=== PATIENT | female | born 1935 | race Caucasian/White ===

== ENCOUNTER 2016-09-30 19:23 | Inpatient (IN) | payer MEDICARE, MEDICAID ==
[~2016-09-30] VITALS: Ht 165.1 cm; Wt 37.0 kg
[2016-09-30 20:48] LABS: BASOPHILS 0.2 % (0-2); EOSINOPHILS 0.3 % (0-7); HEMATOCRIT 43.4 % (36.0-48.0); HEMOGLOBIN 14.2 g/dL (12-16); IMMATURE GRANULOCYTES 0.3 % (0-5); LYMPHOCYTES 25.6 % (15-50); MCH 29.7 pg (26.0-34.0); MCHC 32.7 g/dL (31.0-37.0); MCV 90.8 fL (80.0-100.0); MEAN PLATELET VOLUME 10.8 fL (7.4-10.4); MONOCYTES 7.7 % (2-11); NEUTROPHILS 65.9 % (40-80); PLATELET COUNT 203 10x3/uL (130-400); RBC 4.78 10x6/uL (4.00-5.40); RDW 14.6 % (11.5-14.5); WBC 6.1 10x3/uL (4.8-10.8)
[2016-09-30 21:25] LABS: ANION GAP 16.1 mmol/L (8-16); CALCIUM 9.5 mg/dL (8.5-10.1); CARBON DIOXIDE 24.9 mmol/L (21.0-32.0); CREATININE - SERUM 0.9 mg/dL (0.6-1.3)
[2016-09-30 21:30] LABS: APTT 26.7 SECONDS (22.8-39.4); INR 0.96 (0.85-1.17); PROTIME 12.7 SECONDS (11.6-15.0)
[2016-09-30 21:32] LABS: D-DIMER-QUANTITATIVE 3.34 ug/mLFEU (0.20-0.54)
[2016-09-30 21:32] LABS: TROPONIN-I 0.016 ng/mL (0.000-0.060)
[2016-10-01] VITALS (7 sets, daily range): BP systolic 90–144; BP diastolic 40–123; Ht 165.1 cm; Wt 37.0 kg
--- NOTE | 2016-10-01 01:24 | NUR ---
ARRIVED TO FLOOR VIA STRETCHER, ASSISSTED TO BED. ORIENTED TO UNIT AND PLACED ON TELEMETRY. CALL LIGHT IN REACH. FAMILY AT BEDSIDE. NO NEEDS NOTED AT THIS TIME. WILL CONTINUE TO MONITOR. SEE NURSE ASSESSMENT.
[2016-10-01] MEDS ORDERED: MEGACE40 MG PO (01:51)
[2016-10-01] MEDS ORDERED: LIPITOR10 MG PO (01:52)
[2016-10-01] MEDS ORDERED: OMEGA-3100 MG PO (01:53)
[2016-10-01] MEDS ORDERED: CHRONULAC30 ML PO (01:53)
--- NOTE | 2016-10-01 07:36 | NUR ---
AM ROUNDING- RECEIVED REPORT FROM VP INTEGRATION NURSE DARIUS. PT IS CURRENTLY SITTING UP IN BED WITH EYES OPEN MUMBLING SOUNDS. SISTER AT BEDSIDE. ON MONITOR SHOWING CONTROLLED A-FIB , HR 79. ON SIMPLE MASK AT 2L. IV SEEN TO RIGHT FOREARM WITH CARDIZEM DRIP RUNNING AT 10CC CONTINUOUS. SIDE RAILS ARE UP X2 AND BED ALARM IS ON. WILL CONTINUE TO MONITOR AND CONTINUE WITH PLAN OF CARE.
[2016-10-01 16:21] LABS: BASOPHILS 0.3 % (0-2); EOSINOPHILS 0.8 % (0-7); HEMATOCRIT 38.5 % (36.0-48.0); HEMOGLOBIN 12.4 g/dL (12-16); IMMATURE GRANULOCYTES 0.5 % (0-5); LYMPHOCYTES 25.5 % (15-50); MCH 29.9 pg (26.0-34.0); MCHC 32.2 g/dL (31.0-37.0); MEAN PLATELET VOLUME 9.8 fL (7.4-10.4); MONOCYTES 9.4 % (2-11); NEUTROPHILS 63.5 % (40-80); PLATELET COUNT 204 10x3/uL (130-400); RBC 4.15 10x6/uL (4.00-5.40); RDW 14.6 % (11.5-14.5)
[2016-10-01 16:24] LABS: MCV 92.8 fL (80.0-100.0); WBC 7.9 10x3/uL (4.8-10.8)
[2016-10-01 16:31] LABS: CALC OSMOLALITY 279 mosm/kg (275-300); CALCIUM 9.1 mg/dL (8.5-10.1); CARBON DIOXIDE 21.6 mmol/L (21.0-32.0); CHLORIDE - SERUM 104 mmol/L (98-107); CREATININE - SERUM 1.4 mg/dL (0.6-1.3); GLUCOSE 126 mg/dL (74-106); POTASSIUM - SERUM 3.7 mmol/L (3.5-5.1); SODIUM 138 mmol/L (136-145); UREA NITROGEN 18 mg/dL (7-18); eGFR NON AFRICAN AMERICAN 38 mL/min (90-120)
--- NOTE | 2016-10-01 17:32 | NUR ---
PT IS CURRENTLY LAYING IN BED ON BACK WITH EYES OPEN RESTING. SISTER IS FEEDING PT DINNER. NO NEED AT CURRENT TIME. WILL CONTINUE TO MONITOR.
[2016-10-01 17:35] LABS: CREATINE KINASE 188 UL (21-215); TROPONIN-I 0.037 ng/mL (0.000-0.060)
--- NOTE | 2016-10-01 19:20 | NUR ---
RECEIVED REPORT, IV-RFA- PARRIS DRIP @10, [id number], O2-4 VENTI MASK, BED IS LOW, SRX2, CALL LIGHT IN REACH, [id number] AT BEDSIDE, BED ALARM IS ON, WILL CONTINUE PLAN OF CARE
[2016-10-01 20:20] LABS: CKMB 2.2 U/L (0.0-3.6); CREATINE KINASE 185 UL (21-215); TROPONIN-I 0.036 ng/mL (0.000-0.060)
[2016-10-02] VITALS: BP 106/50
[2016-10-02 02:42] LABS: BASOPHILS 0.3 % (0-2); EOSINOPHILS 1.4 % (0-7); HEMATOCRIT 38.3 % (36.0-48.0); HEMOGLOBIN 12.9 g/dL (12-16); IMMATURE GRANULOCYTES 0.3 % (0-5); MCH 30.6 pg (26.0-34.0); MCHC 33.7 g/dL (31.0-37.0); MEAN PLATELET VOLUME 9.5 fL (7.4-10.4); MONOCYTES 6.3 % (2-11); NEUTROPHILS 62.7 % (40-80); PLATELET COUNT 200 10x3/uL (130-400); RBC 4.22 10x6/uL (4.00-5.40); RDW 14.5 % (11.5-14.5)
[2016-10-02 02:50] LABS: MCV 90.8 fL (80.0-100.0)
[2016-10-02 03:13] LABS: CALC OSMOLALITY 276 mosm/kg (275-300); CALCIUM 8.7 mg/dL (8.5-10.1); CARBON DIOXIDE 19.9 mmol/L (21.0-32.0); CHLORIDE - SERUM 106 mmol/L (98-107); CKMB 2.2 U/L (0.0-3.6); CREATINE KINASE 188 UL (21-215); CREATININE - SERUM 1.2 mg/dL (0.6-1.3); GLUCOSE 107 mg/dL (74-106); POTASSIUM - SERUM 3.7 mmol/L (3.5-5.1); SODIUM 138 mmol/L (136-145); UREA NITROGEN 15 mg/dL (7-18); eGFR NON AFRICAN AMERICAN 46 mL/min (90-120)
[2016-10-02 04:00] VITALS: BP 116/62
--- NOTE | 2016-10-02 07:48 | NUR ---
AM ROUNDING- RECEIVED REPORT FROM STUNTMAN NURSE CHAUNCEY. PT IS CURRENTLY LAYING IN BED ON RIGHT SIDE WITH EYES OPEN RESTING. SISTER IS AT BEDSIDE. ON VENTI MASK AT 4L. ON MONITOR SHOWING CONTROLLED A-FIB, HR 80. IV SEEN TO RIGHT FOREARM WITH CARDIZEM RUNNING AT 10CC. IV WRAPPED WITH KERLIX. NO NEED AT CURRENT TIME. WILL CONTINUE TO MONITOR AND CONTINUE WITH PLAN OF CARE.
[2016-10-02 08:52] VITALS: BP 95/48
[2016-10-02] MEDS ORDERED: CARDIZEM CD240 MG PO (12:19)
[2016-10-02 13:11] VITALS: BP 99/47
--- NOTE | 2016-10-02 13:25 | NUR ---
D/C INSTRUCTIONS EXPLAINED TO PT. D/C INSTRUCTIONS SIGNED BY PTS [id number] (TUFT MACHINE OPERATOR) AND PLACED IN CHART. IV TO RIGHT FOREARM REMOVED WITH CATH TIP INTACT. COVERED SITE WITH 2X2 GAUZE PADS AND SECURED WITH TAPE. TOLERATED WELL. HEART MONITOR REMOVED AND RETURNED TO [place] WITH TELEMETRY. AWAITING PTS [id number] TO GET PTS BELONGINGS TOGETHER. WILL D/C PT WHEN BELONGINGS ARE TOGETHER. WILL CONTINUE TO MONITOR.
--- NOTE | 2016-10-02 13:30 | NUR ---
0953- D/C PARRIS WILSON ORDERED.
--- NOTE | 2016-10-02 13:58 | NUR ---
PT D/C VIA WHEELCHAIR.
--- NOTE | 2016-10-02 18:45 | NUR ---
Patient Name: REVA SALGADO Admission Status: ER Accout number: [id number] Admission Date: 10-01-2016 : 1935 Admission Diagnosis:CARDIAC ARRHYTHMIA, UNSPECIFIED Attending: MANDIE Current LOS: 1 Anticipated DC Date: 10-02-2016 Planned Disposition: Home [facility] Discharge Planning Comments: s the patient Alert and Oriented? No 0 * How many steps to enter\exit or inside your home? 15 0 * PCP DR. SPARROW 0 * [facility] * Preadmission Environment Home with Family 0 * ADLs Total Dependent 0 * Equipment Bedside Commode Tub Bench Walker Wheelchair 0 * Other Equipment NO MEDICAL EQUIPMENT PROVIDER PREFERENCE 0 * List name and contact numbers for known caregivers / representatives who currently or will assist patient after discharge: CATHRYN BARRIENTOS, SISTER IN , 0 * Community resources currently utilized Private Duty Care 0 * Please name any agencies selected above. [facility], 5 DAYS PER WEEK, 8 HOURS PER DAY 0 * Additional services required to return to the preadmission environment? No 0 * Can the patient safely return to the preadmission environment? Yes 0 * Has this patient been hospitalized within the prior 30 days at any hospital? No 0 CM MET WITH PT AND SISTER IN IN ROOM TO DISCUSS DISCHARGE PLANNING AND NEEDS. PT NOT COMMUNICATIVE, PT'S SISTER IN REPORTS LIVING AT HOME INDEPENDENTLY WITH SISTER IN WHO IS PT'S CAREGIVER; PT HAS ALL NEEDED MEDICAL EQUIPMENT AND PERSONAL CARE FOR 8 HOURS PER DAY, 5 DAYS PER WEEK. SISTER SAKSHI JOE HAS 5 CAMERAS TO WATCH PT AND CAREGIVERS VIA PHONE WHEN SHE IS NOT HOME WITH THEM. CM DISCUSSED AVAILABILITY OF HOME HEALTH, REHAB SERVICES AND MEDICAL EQUIPMENT. PT'S SISTER IN DENIES DISCHARGE NEEDS, REPORTS SHE IS HERE TO PICK PT UP FOR DISCHARGE HOME NOW. IMPORTANT MESSAGE FROM MEDICARE PROVIDED AND EXPLAINED. Promotions Manager: Ramy Boyd
--- NOTE | 2016-10-03 10:40 | CN ---
PATIENT NAME:REVA SALGADO MEDICAL RECORD: [id number] : 37 LOCATION:. D.[id number] ADMIT DATE: 10/01/16 ACCOUNT: [id number] CONSULTING PHYSICIAN: MARCOS MATTA MD REFERRING PHYSICIAN: LANCE LOCKWOOD MD DATE OF CONSULTATION: 10/02/2016 HISTORY OF PRESENT ILLNESS: An 81-year-old lady with a history of mental retardation. History is obtained from jr. systems administrator and chart, has been having weakness, fatigue, unusual for her, was admitted and found to have atrial fibrillation with RVR, started on Cardizem drip, had an excellent control with low-dose IV diltiazem. Cardiac enzymes with minimal elevation and BNP. We are asked to see her concerning her cardiovascular status. PAST MEDICAL HISTORY: From old chart includes: 1. History of hypertension. 2. Dyslipidemia. 3. Mental retardation. MEDICATIONS: Include lactulose 30 mg b.i.d., atorvastatin 10 daily, Megace 40 daily. ALLERGIES: None known. SOCIAL HISTORY: Lives in [place], has horse race timer caregiver. Unable to take care of her ADLs. REVIEW OF SYSTEMS: Otherwise unobtainable due to the patient factors. PHYSICAL EXAMINATION: GENERAL: Elderly female, in no acute distress. VITAL SIGNS: Blood pressure 116/62, pulse 67 and regular. HEENT: Normocephalic, atraumatic. NECK: No JVD or bruit. HEART: Regular, rate controlled. LUNGS: Good air excursion. ABDOMEN: Soft, nontender. EXTREMITIES: Pulses 2+. No edema. IMPRESSION: Atrial fibrillation. Obviously, not a candidate for anticoagulation. We will start Cardizem. If this controls rate if stopping IV, no contraindication at discharge from my standpoint. TRANSINT:[id number] Voice Confirmation ID: [id number] DOCUMENT ID: [id number] MARCOS MATTA MD at 1040 CC: [id number] DICTATION DATE: 10/02/16821 MEDICAL ACCOUNTANT: 10/02/16 184 DIS IN 10/02/16 [facility] [address] [place] [address]
== END 2016-10-02 14:01 | disposition home or self-care (01) | DRG 308 ==
LOC: D.ER 19:23 → D.M2 10-01 00:34
PROVIDERS: Emergency Medicine; Nurse Practitioner Acute Care; ADMIT Family Medicine
DX: I48.91 Unspecified atrial fibrillation (principal); E43 Unspecified severe protein-calorie malnutrition; Z68.1 Body mass index [BMI] 19.9 or less, adult; F79 Unspecified intellectual disabilities; E78.5 Hyperlipidemia, unspecified; E87.5 Hyperkalemia; Z87.891 Personal history of nicotine dependence

== ENCOUNTER 2016-12-11 15:20 | Inpatient (IN) | payer MEDICARE, MEDICAID ==
[~2016-12-11] VITALS: Ht 154.9 cm; Wt 35.8 kg
[~2016-12-11 15:20] MED LIST: CARDIZEM CD240 MG PO; CHRONULAC30 ML PO; LIPITOR10 MG PO; MEGACE40 MG PO; OMEGA-3100 MG PO
[2016-12-11 16:25] VITALS: BP 105/66
[2016-12-11] MEDS ORDERED: CHRONULAC30 ML PO (16:36)
[2016-12-11] MEDS ORDERED: SYNTHROID25 MCG PO (16:39)
[2016-12-11 17:11] LABS: BASOPHILS 0.1 % (0-2); EOSINOPHILS 0 % (0-7); HEMATOCRIT 39.8 % (36.0-48.0); HEMOGLOBIN 13.3 g/dL (12-16); IMMATURE GRANULOCYTES 0.8 % (0-5); MCH 31.8 pg (26.0-34.0); MCHC 33.4 g/dL (31.0-37.0); MCV 95.2 fL (80.0-100.0); MEAN PLATELET VOLUME 9.5 fL (7.4-10.4); MONOCYTES 5.7 % (2-11); NEUTROPHILS 85.4 % (40-80); RBC 4.18 10x6/uL (4.00-5.40); RDW 15.7 % (11.5-14.5); WBC 11.8 10x3/uL (4.8-10.8)
[2016-12-11 17:13] LABS: PLATELET COUNT 285 10x3/uL (130-400)
[2016-12-11 17:31] LABS: ALBUMIN 2.3 g/dL (3.4-5.0); ANION GAP 13.3 mmol/L (8-16); BILIRUBIN - TOTAL 0.78 mg/dL (0.2-1.3); CALCIUM 8.6 mg/dL (8.5-10.1); CARBON DIOXIDE 23.8 mmol/L (21.0-32.0); CREATININE - SERUM 0.8 mg/dL (0.6-1.3); POTASSIUM - SERUM 4.1 mmol/L (3.5-5.1); PROTEIN - SERUM 6.5 g/dL (6.4-8.2)
[2016-12-11 18:05] VITALS: BP 106/66; BMI 14.9
[2016-12-11 20:00] VITALS: BP 106/69
--- NOTE | 2016-12-11 22:51 | NUR ---
RESTING IN BED, FAMILY AT BEDSIDE, DENIES NEEDS ATT. BED LOW AND LOCKED, CALL LIGHT IN REACH. FAMILY INFORMED ME THAT SHE CHANGES OUT THE PT'S DEPENDS, ASKED THAT SHE LET SOMEONE KNOW OR TO DOCUMENT IT ON THE PROVIDED SHEET ON DOOR, SHE SAID SHE WOULD.
[2016-12-12] VITALS: BP 115/67
[2016-12-12 03:59] VITALS: BP 106/78
[2016-12-12 05:42] LABS: BASOPHILS 0.1 % (0-2); EOSINOPHILS 0.1 % (0-7); HEMATOCRIT 39.2 % (36.0-48.0); IMMATURE GRANULOCYTES 1.4 % (0-5); LYMPHOCYTES 10.2 % (15-50); MCH 31.6 pg (26.0-34.0); MCHC 33.2 g/dL (31.0-37.0); MCV 95.1 fL (80.0-100.0); MEAN PLATELET VOLUME 9.9 fL (7.4-10.4); MONOCYTES 6.7 % (2-11); NEUTROPHILS 81.5 % (40-80); PLATELET COUNT 298 10x3/uL (130-400); RBC 4.12 10x6/uL (4.00-5.40); RDW 15.7 % (11.5-14.5); WBC 9.9 10x3/uL (4.8-10.8)
[2016-12-12 06:01] LABS: ALBUMIN 2.2 g/dL (3.4-5.0); ALKALINE PHOSPHATASE 79 U/L (46-116); ALT (SGPT) 19 U/L (10-68); BILIRUBIN - TOTAL 0.65 mg/dL (0.2-1.3); CALC OSMOLALITY 276 mosm/kg (275-300); CALCIUM 8.2 mg/dL (8.5-10.1); CARBON DIOXIDE 22.7 mmol/L (21.0-32.0); CHLORIDE - SERUM 103 mmol/L (98-107); CREATININE - SERUM 0.6 mg/dL (0.6-1.3); GLUCOSE 76 mg/dL (74-106); POTASSIUM - SERUM 4.5 mmol/L (3.5-5.1); PROTEIN - SERUM 5.8 g/dL (6.4-8.2); SODIUM 137 mmol/L (136-145); UREA NITROGEN 24 mg/dL (7-18); eGFR NON AFRICAN AMERICAN > 90 mL/min (90-120)
--- NOTE | 2016-12-12 07:25 | NUR ---
PATIENT RECEIVED IN MID MONREAL POSITION. NO SIGNS OF DISTRESS NOTED. SIDE RAILS UP X2. BED IN LOW POSITION. CALL LIGHT IN REACH. FAMILY PRESENT.
[2016-12-12 07:57] VITALS: BP 123/68
--- NOTE | 2016-12-12 09:45 | NUR ---
PATIENT IN BED RESTING QUIETLY. NO SIGNS OF DISTRESS NOTED. SCDS ON BILATERALLY. FAMILY PRESENT AT BEDSIDE. SIDE RAILS UP X2. BED IN LOW POSITION. CALL LIGHT IN REACH.
[2016-12-12 12:01] VITALS: BP 112/793
[2016-12-12 13:56] VITALS: Ht 154.9 cm; Wt 35.8 kg
--- NOTE | 2016-12-12 15:53 | NUR ---
PATIENT IN MID MONREAL POSITION RESITNG QUIETLY. RESPIRATIONS EVEN AND UNLABORED. SIDE RAILS UP X2. BED IN LOW POSITION. CALL LIGHT IN REACH.
[2016-12-12 16:32] VITALS: BP 129/63
--- NOTE | 2016-12-12 18:15 | NUR ---
PATIENT IN LEFT LATERAL POSITION RESTING QUIETLY WITH EYES CLOSED. RESPIRATIONS EVEN AND UNLABORED. SIDE RAILS UP X2. BED IN LOW POSITION. CALL LIGHT IN REACH.
[2016-12-12 20:00] VITALS: BP 114/60
[2016-12-13] VITALS: BP 113/66
--- NOTE | 2016-12-13 01:58 | NUR ---
ASSESSED, AT THE BEGINNING OF THE SHIFT. PT IS AWAKE BUT DOSENT RESPOND TO VERBAL CONFERSATION OR QUESTIONS. HER SISTER IS STAYING WITH HER. SHE IS WEARING THE SCDS AND BECAUSE SHE IS INCONTININT WE ARE THERE FOR TURNING AND CLEANING IF HER SISTER HASNT BEATEN US TO IT. NO SIGNS OF PAIN NOTED. THE BED IS LOW, RAILS UP X'S 2 WITH THE CALL LIGHT AT HAND.
[2016-12-13 06:51] LABS: BASOPHILS 0.1 % (0-2); EOSINOPHILS 0.1 % (0-7); HEMATOCRIT 36.3 % (36.0-48.0); HEMOGLOBIN 12.1 g/dL (12-16); IMMATURE GRANULOCYTES 1.4 % (0-5); LYMPHOCYTES 9.7 % (15-50); MCH 31.8 pg (26.0-34.0); MCHC 33.3 g/dL (31.0-37.0); MCV 95.3 fL (80.0-100.0); MEAN PLATELET VOLUME 9.4 fL (7.4-10.4); MONOCYTES 6.4 % (2-11); NEUTROPHILS 82.3 % (40-80); PLATELET COUNT 298 10x3/uL (130-400); RBC 3.81 10x6/uL (4.00-5.40); WBC 10.3 10x3/uL (4.8-10.8)
[2016-12-13 07:07] LABS: ALBUMIN 1.7 g/dL (3.4-5.0); ALKALINE PHOSPHATASE 63 U/L (46-116); ALT (SGPT) 15 U/L (10-68); BILIRUBIN - TOTAL 0.55 mg/dL (0.2-1.3); CALC OSMOLALITY 281 mosm/kg (275-300); CARBON DIOXIDE 17.5 mmol/L (21.0-32.0); CHLORIDE - SERUM 109 mmol/L (98-107); CREATININE - SERUM 0.6 mg/dL (0.6-1.3); GLUCOSE 73 mg/dL (74-106); POTASSIUM - SERUM 3.9 mmol/L (3.5-5.1); PROTEIN - SERUM 5.3 g/dL (6.4-8.2); SODIUM 140 mmol/L (136-145); UREA NITROGEN 25 mg/dL (7-18); eGFR NON AFRICAN AMERICAN > 90 mL/min (90-120)
--- NOTE | 2016-12-13 07:30 | NUR ---
RECIEVED PT DURING WALKING ROUNDS. PT RESTING COMFORTABLY WITH CAREGIVER AT BEDSIDE. ASSESSMENT DONE PER FLOWSHEET. BED IN LOW POSITION AND CALL LIGHT WITHIN REACH. WILL CONTINUE TO MONITOR.
[2016-12-13 07:52] VITALS: BP 93/64
--- NOTE | 2016-12-13 10:51 | NUR ---
Is the patient Alert and Oriented? No 0 * How many steps to enter\exit or inside your home? 21 steps 0 * PCP DR Marianela Ricketts 0 * Pharmacy [facility] on [address] 0 * Preadmission Environment Home with Family 0 * ADLs Total Dependent 0 * Equipment Hospital Bed Wheelchair 0 * Other Equipment [facility] is planning to assist with stair lift chair Expecting new hospital bed 0 * List name and contact numbers for known caregivers / representatives who currently or will assist patient after discharge: Jen Heath - sister in law- [phone] 0 * Community resources currently utilized Other 0 * Please name any agencies selected above. [facility] thru [facility] program, [facility] q[facility]days 0 * Additional services required to return to the preadmission environment? Yes 0 * Can the patient safely return to the preadmission environment? Yes 0 * Has this patient been hospitalized within the prior 30 days at any hospital? No 0
--- NOTE | 2016-12-13 11:01 | NUR ---
Patient Name: REVA SALGADO Admission Status: Elective Accout number: [id number] Admission Date: 12-11-2016 : 1935 Admission Diagnosis: Attending: JIMENA Current LOS: 2 Anticipated DC Date: Planned Disposition: Home with Home Health Primary Insurance: [facility] Discharge Planning Comments: CM MET WITH MRS CATHRYN BARRIENTOS WHO IS THE SISTER IN LAW TO THE PATIENT. PATIENT IS AWAKE BUT NONVERBAL. THE PATIENT STAYS WITH MRS BARRIENTOS AND HER YOUNGER BROTHER. MS BARRIENTOS STATES THEY PROMISED HER MOTHER AND FATHER THEY WOULD NEVER PUT HER IN A FCI. THE PLAN IS TO RETURN TO HOME WITH PRESENT CARE. PATIENT RECEIVES CARE WITH [facility]. [facility] LOADING MACHINE OPERATOR, NICOLLE, IS IN THE PROCESS OF INCREASING THE HOURS. PATIENT HAS STEADILY DECLINED IN THE LAST 6 MONTHS PER MRS BARRIENTOS. SHE COULD GET UP TO A WHEELCHAIR WITH ASSIST 6 MONTHS AGO. APPROXIMATELY 3 MONTHS AGO SHE COULD TAKE 2 STEPS AND PIVOT TO CHAIR. SHE IS TOTAL LIFT NOW. A FRANKIE LIFT IS REQUESTED BY MS BARRIENTOS. PCP- DR Marianela [facility] DME- HOSPITAL BED AND WHEELCHAIR. FAMILY HAS 8 CAMERAS IN THE HOUSE TO MONITOR PATIENT THE HOUSE IS 2 STORIES. SUPPLIES- DEPENDS- [facility]- [facility] , [facility], [facility] LOADING MACHINE OPERATOR TRANSPORTATION- WILL NEED AMBULANCE TRANSPORT TO HOME. CODE STATUS- MRS BARRIENTOS STATES FULL CODE AT LEAST ONE TIME [facility] LOADING MACHINE OPERATOR IS WORKING WITH [facility] TO INCREASE [employer]. PATIENT MAY NEED AIR MATTRESS FOR BED. RECEIVED HER PRESENT BED IN 1974. NEEDS A FRANKIE LIFT FAMILY GETS HER OOB TO THE COUCH 1-2 HRS DAILY. CM WILL FOLLOW TO ASSIST W/ CARE ARRANGEMENTS. Torch Brazer: Rosalba Martinez
[2016-12-13 12:35] VITALS: BP 109/64
--- NOTE | 2016-12-13 12:35 | NUR ---
PT PLACED ON 2L OF O2 AT THIS TIME DUE TO PT O2 SAT 89% ON ROOM AIR, PTS O2 SAT COME UP TO 98%. WILL CONTINUE TO MONITOR.
--- NOTE | 2016-12-13 12:40 | NUR ---
PAGED X THREE TIMES, DUE TO PTS ELEVATED HEART RATE AND NOT BEING ABLE TO TAKE PRESCRIBED MEDICATION BY MOUTH. KAMLESH MAGANACARMELA WAS SEEN ON THE FLOOR AT THIS TIME AND ORDERS WERE RECIEVED TO CONSULT CARDIOLOGY. DR. WRIGHT PAGED AT THIS TIME, HE STATED HE WOULD SEE HER DURING ROUNDS. INFORMED DR. WRIGHT PT WAS NOT ON TELEMETRY, NO CHANGES TO BE MADE AND NO NEW ORDERS RECIEVED AT THIS TIME. INFORMED PT CAREGIVER OF THE PLAN OF CARE. BED IN LOW POSITION AND CALL LIGHT WITHIN REACH. WILL CONTINUE TO MONITOR.
[2016-12-13 15:53] VITALS: BP 120/88
--- NOTE | 2016-12-13 19:20 | NUR ---
RECIEVED SHIFT REPORT. PT IS LYING IN BED. PT IS NONVERBAL. NO SIGNS OF DISTRESS ARE NOTED. O2 @ 2 PER NASAL CANNULA. SCD'S ON. IV IS PATENT AND FLUIDS ARE RUNNING PER ORDER. PT REQUIRES ASSISTANCE TURNING IN BED FOR COMFORT AND SKIN CARE. CAREGIVER IS AT THE BEDSIDE AND STATES THAT SHE KEEPS PT TURNED AND DRY. INSTRUCTED TO CALL FOR ANY ASSISTANCE NEEDED. NO NEEDS ARE VERBALIZED AT THIS TIME. WILL CONTINUE TO MONITOR. SIDE RAILS ARE UP X 2. BED IS IN LOWEST POSITION. CALL LIGHT IS WITHIN REACH.
[2016-12-13 20:00] VITALS: BP 121/75
--- NOTE | 2016-12-13 20:29 | NUR ---
SHIFT ASSESSMENT COMPLETED. PT STATUS REMAINS UNCHANGED FROM PREVIOUS. WILL MONITOR. SIDE RAILS X 2. BED LOW. CALL LIGHT IN REACH.
[2016-12-14 04:00] VITALS: BP 116/74
[2016-12-14 04:21] LABS: BASOPHILS 0 % (0-2); EOSINOPHILS 0 % (0-7); HEMOGLOBIN 12.6 g/dL (12-16); IMMATURE GRANULOCYTES 1.3 % (0-5); LYMPHOCYTES 10.1 % (15-50); MCH 31.9 pg (26.0-34.0); MCHC 33.2 g/dL (31.0-37.0); MCV 96.2 fL (80.0-100.0); MEAN PLATELET VOLUME 9.1 fL (7.4-10.4); MONOCYTES 4.7 % (2-11); NEUTROPHILS 83.9 % (40-80); PLATELET COUNT 319 10x3/uL (130-400); RBC 3.95 10x6/uL (4.00-5.40); RDW 16.1 % (11.5-14.5); WBC 9.9 10x3/uL (4.8-10.8)
[2016-12-14 04:45] LABS: ALBUMIN 1.9 g/dL (3.4-5.0); ALKALINE PHOSPHATASE 72 U/L (46-116); ALT (SGPT) 16 U/L (10-68); BILIRUBIN - TOTAL 0.61 mg/dL (0.2-1.3); CALC OSMOLALITY 288 mosm/kg (275-300); CALCIUM 8.6 mg/dL (8.5-10.1); CARBON DIOXIDE 17.1 mmol/L (21.0-32.0); CHLORIDE - SERUM 111 mmol/L (98-107); CREATININE - SERUM 0.7 mg/dL (0.6-1.3); GLUCOSE 88 mg/dL (74-106); POTASSIUM - SERUM 4.1 mmol/L (3.5-5.1); SODIUM 143 mmol/L (136-145); UREA NITROGEN 27 mg/dL (7-18); eGFR NON AFRICAN AMERICAN 85 mL/min (90-120)
--- NOTE | 2016-12-14 07:30 | NUR ---
PT ASSESSMENT COMPLETE AWAKE AND ALERT TO SURROUNDINGS PT IS NON VERBAL AND REPORTEDLY HAS THE MENTAL CAPICITY OF A 3 YEAR OLD. PT SISTER IN LAW AND ROTARY DRIER FEEDER AT BEDSIDE. HAS 3RD SPACED FLUID NOTED TO BILATERAL UPPER EXTREMITIES PIV 20 GA TO LEFT FORARM WITH NO REDNESS NOTED. SIDE RAILS UP X 3 CALL LIGHT IN REACH PT IS INCT BOWEL AND BLADDER.
[2016-12-14 08:23] VITALS: BP 116/76
[2016-12-14 12:05] VITALS: BP 131/80
--- NOTE | 2016-12-14 13:00 | NUR ---
PT AWAKE AND ALERT TO SURROUNDINGS, PT IS NON-VERBAL. IV PATENT WITH FLUIDS RUNNING ORDERED, DRSG CLEAN, DRY AND INTACT. 16F NEWTON CATHETER PLACED USING STERILE TECHNIQUE, ENTIRE CONTENTS OF NEWTON KIT UTILIZED. BED IN LOWEST POSITION, CALL LIGHT WITHIN REACH. FAMILY AT BEDSIDE.
--- NOTE | 2016-12-14 14:53 | NUR ---
NUTRITION MONITORING & EVAL CHART REVIEWED, CAREGIVER AT BEDSIDE. NPO. FOR PEG PLACEMENT TOMORROW. TUBE FEEDS WHEN APPROPRIATE. RD FOLLOWING
[2016-12-14 16:05] VITALS: BP 116/74
--- NOTE | 2016-12-14 17:38 | NUR ---
PT RESTING IN BED WITH FAMILY AT SIDE NO DISTRESS NOTED. ALL ADLS PER TOTAL CARE OF STAFF.
--- NOTE | 2016-12-14 19:20 | NUR ---
RECIEVED SHIFT REPORT. PT IS LYING IN BED. PT WITH NO DISTRESS AT THIS TIME. RESPIRATIONS ARE EVEN AND UNLABORED. PT IS NONVERBAL. IV IS PATENT AND FLUIDS ARE RUNNING PER ORDER. O2 @ 2 PER NASAL CANNULA. SCD'S ON. CAREGIVER AT THE BEDSIDE THAT STATES SHE HANDLES PT CARE. INSTRUCTED CAREGIVER TO LET ME KNOW IF ANY ASSISTANCE IS NEEDED. VERBALIZED UNDERSTANDING. WILL CONTINUE TO MONITOR. SIDE RAILS ARE UP X 2. BED IS IN LOWEST POSITION. CALL LIGHT IS WITHIN REACH.
[2016-12-14 20:00] VITALS: BP 118/73
--- NOTE | 2016-12-14 20:05 | NUR ---
SHIFT ASSESSMENT COMPLETED. PT STATUS REMAINS UNCHANGED FROM PREVIOUS. WILL MONITOR. SIDE RAILS X 2. BED LOW. CALL LIGHT IN REACH. CAREGIVER AT BEDSIDE.
[2016-12-15 05:18] LABS: BASOPHILS 0.1 % (0-2); EOSINOPHILS 0 % (0-7); HEMATOCRIT 34.1 % (36.0-48.0); HEMOGLOBIN 11.4 g/dL (12-16); IMMATURE GRANULOCYTES 0.9 % (0-5); LYMPHOCYTES 7.7 % (15-50); MCH 32.1 pg (26.0-34.0); MCHC 33.4 g/dL (31.0-37.0); MCV 96.1 fL (80.0-100.0); MEAN PLATELET VOLUME 9.7 fL (7.4-10.4); MONOCYTES 4.4 % (2-11); NEUTROPHILS 86.9 % (40-80); PLATELET COUNT 301 10x3/uL (130-400); RBC 3.55 10x6/uL (4.00-5.40); RDW 16.1 % (11.5-14.5); WBC 10.7 10x3/uL (4.8-10.8)
[2016-12-15 05:45] LABS: ALBUMIN 2.2 g/dL (3.4-5.0); ALKALINE PHOSPHATASE 60 U/L (46-116); ALT (SGPT) 14 U/L (10-68); CALCIUM 8.4 mg/dL (8.5-10.1); CARBON DIOXIDE 16.8 mmol/L (21.0-32.0); CHLORIDE - SERUM 113 mmol/L (98-107); GLUCOSE 90 mg/dL (74-106); PROTEIN - SERUM 5.5 g/dL (6.4-8.2); SODIUM 147 mmol/L (136-145)
[2016-12-15 05:53] LABS: CALC OSMOLALITY 293 mosm/kg (275-300); CREATININE - SERUM 0.5 mg/dL (0.6-1.3); POTASSIUM - SERUM 3.4 mmol/L (3.5-5.1); UREA NITROGEN 19 mg/dL (7-18); eGFR NON AFRICAN AMERICAN > 90 mL/min (90-120)
--- NOTE | 2016-12-15 07:30 | NUR ---
PT ASSESSMENT COMPLETE AWAKE OPENS EYES TO VERBAL STIMLI NON VERBAL FAMILY AT BEDSIDE. CONTRACTURES NOTED TO BLE. TELEMETRY UCAF AT 117. AWAITING PEG PLACEMENT TODAY PER DR ANDREWS.
[2016-12-15 09:05] VITALS: BP 126/75
--- NOTE | 2016-12-15 13:47 | NUR ---
NUTRITION MONITORING & EVAL CHART REVIEWED. S/P PEG PLACEMENT. TUBE FEEDS TO START @ 1500. RECOMMEND DAILY MULTIVITAMIN. WILL NEED TO MONITOR LABS CLOSELY FOR SIGNS OF REFEEDING SYNDROME. RD FOLLOWING
--- NOTE | 2016-12-15 17:53 | NUR ---
PEG FEEDING STARTED PER RECOMMENDATION JEVITY 1.2 AT 10 ML/HR VIA PUMP WILL MONITOR TOLERANCE OF FEEDING.
--- NOTE | 2016-12-15 19:25 | NUR ---
RECIEVED SHIFT REPORT. PT IS LYING IN BED. PT IS NONVERBAL. NO DISTRESS IS NOTED. O2 @ 2.5 PER NASAL CANNULA. NEWTON IS DRAINING URINE BY GRAVITY. SCD'S ON. PT REQUIRES ASSISTANCE TURNING IN BED FOR COMFORT AND SKIN CARE. CAREGIVER IS AT THE BEDSIDE AND DOES CARE OF PT. INSTRUCTED TO CALL FOR ANY ASSISTANCE NEEDED. PEG TUBE PATENT AND FEED RUNNING PER ORDER. NO NEEDS AT THIS TIME. WILL MONITOR. SIDE RAILS ARE UP X 2. BED IS IN LOWEST POSITION. CALL LIGHT IS WITHIN REACH.
[2016-12-15 20:00] VITALS: BP 122/73
--- NOTE | 2016-12-15 20:30 | NUR ---
SHIFT ASSESSMENT COMPLETED. PT STATUS REMAINS UNCHANGED FROM PREVIOUS. WILL MONITOR. SIDE RAILS X 2. BED LOW. CALL LIGHT IN REACH.
--- NOTE | 2016-12-16 00:23 | OP ---
PATIENT NAME: REVA SALGADO MEDICAL RECORD: [id number] :37 LOCATION:D.MS [id number] ADMISSION DATE:12/14/16 SURGEON: JUWAN ANDREWS MD DATE OF OPERATION: 12/15/2016 PREOPERATIVE DIAGNOSES: 1. Dysphagia. 2. Protein-calorie severe malnutrition. 3. Functional quadriplegia. 4. Atrial fibrillation. 5. Hyperlipidemia. POSTOPERATIVE DIAGNOSES: 1. Dysphagia. 2. Protein-calorie severe malnutrition. 3. Functional quadriplegia. 4. Atrial fibrillation. 5. Hyperlipidemia. PROCEDURE: PEG tube placement. SURGEON: Juwan Andrews MD. REPORT OF PROCEDURE: An Olympus endoscope was advanced through the mouth and esophagus into the stomach. The stomach was noted to have some inflammatory gastritis. We found the area on the antrum of the stomach to house our tube. A total of 5 cc of 1% lidocaine was infused into the subcutaneous tissues. An Angiocath needle was then inserted through the abdominal wall into the lumen of the stomach. Through this, a wire was advanced and grasped with the Endo snare. The wire and snare were pulled through the mouth and esophagus and the PEG tube was affixed to the wire. The wire and PEG tube were then pulled through the mouth and esophagus and through the anterior abdominal wall until it rested in good position at 3 cm. The endoscope was readvanced down into the stomach and we noted that there was no sign of any internal bleeding. At this point, the scope and insufflation were removed. COMPLICATIONS: None. CONDITION: Fair. ANESTHESIA: TIVA and local. BLOOD LOSS: Minimal. TRANSINT:[id number] Voice Confirmation ID: [id number] DOCUMENT ID: [id number] JUWAN ANDREWS MD at 0023 CC: [id number] DICTATION DATE: 12/15/16 1103 JEWEL CUPPING MACHINE OPERATOR: 12/15/162030 ADM IN [facility] [address] [place] [address]
[2016-12-16 04:00] VITALS: BP 103/50
--- NOTE | 2016-12-16 06:04 | NUR ---
NO RESIDUAL AT THIS TIME. MORNING MEDS PUSHED THROUGH PEG TUBE WITH NO PROBLEMS. FEED BUMPED UP BY 10ML TO 20ML/HR. CAREGIVER AT BEDSIDE. SIDE RAILS X 2. BED LOW. CALL LIGHT IN REACH.
[2016-12-16 06:09] LABS: BASOPHILS 0.1 % (0-2); EOSINOPHILS 0 % (0-7); HEMATOCRIT 33.7 % (36.0-48.0); HEMOGLOBIN 11.1 g/dL (12-16); IMMATURE GRANULOCYTES 0.8 % (0-5); LYMPHOCYTES 6.4 % (15-50); MCH 31.5 pg (26.0-34.0); MCHC 32.9 g/dL (31.0-37.0); MCV 95.7 fL (80.0-100.0); MEAN PLATELET VOLUME 9.9 fL (7.4-10.4); MONOCYTES 2.2 % (2-11); NEUTROPHILS 90.5 % (40-80); PLATELET COUNT 287 10x3/uL (130-400); RBC 3.52 10x6/uL (4.00-5.40); RDW 16.3 % (11.5-14.5); WBC 13.3 10x3/uL (4.8-10.8)
[2016-12-16 06:14] LABS: ALKALINE PHOSPHATASE 64 U/L (46-116); ALT (SGPT) 16 U/L (10-68); BILIRUBIN - TOTAL 0.73 mg/dL (0.2-1.3); CALCIUM 8.3 mg/dL (8.5-10.1); CARBON DIOXIDE 18.1 mmol/L (21.0-32.0); CHLORIDE - SERUM 110 mmol/L (98-107); MAGNESIUM - SERUM 1.9 mg/dL (1.8-2.4); PHOSPHOROUS 2.6 mg/dL (2.5-4.9); POTASSIUM - SERUM 3.7 mmol/L (3.5-5.1); PROTEIN - SERUM 5.1 g/dL (6.4-8.2); SODIUM 143 mmol/L (136-145); eGFR NON AFRICAN AMERICAN 85 mL/min (90-120)
[2016-12-16 06:15] LABS: CALC OSMOLALITY 291 mosm/kg (275-300); CREATININE - SERUM 0.7 mg/dL (0.6-1.3); GLUCOSE 157 mg/dL (74-106); UREA NITROGEN 24 mg/dL (7-18)
--- NOTE | 2016-12-16 07:50 | NUR ---
PT NONVERBAL WITH MENTAL RETARDATION AND CAREGIVER AT BEDSIDE AT THIS TIME IV TO LEFT FOREARM PATENT AND INTACT AT THIS TIME SRX2 BED AT LOWEST SETTING CALL LIGHT WITHIN REACH WILL CONTINUE TO MONITOR
[2016-12-16 09:41] VITALS: BP 102/52
[2016-12-16 12:55] VITALS: BP 87/56
--- NOTE | 2016-12-16 14:40 | NUR ---
PT FAMILY CALLED OUT THAT PT WAS NOT BREATHING AT THIS TIME. FAMILY STATES PATIENT IS A DNR. DR GREEN HERE ON FLOOR AND IMMEDIATELY TO ROOM. FAMILY STATED PT WAS DNR AND DR GREEN AGREED. DR GREEN PROMOUNCED AT THIS TIME.
--- NOTE | 2016-12-16 17:15 | NUR ---
CATRACHITA RAMOS HOME HERE TO METAL FURNITURE ASSEMBLER VIA SUSI AT THIS TIME
--- NOTE | 2016-12-18 10:37 | NUR ---
LATE ENTRY-PATIENT 12/16/16
== END 2016-12-16 17:29 | DRG 391 ==
LOC: D.MS 15:20 → OBSVTIME 15:21 → D.MS 12-14 11:32
PROVIDERS: Surgery; ADMIT Family Medicine
PROC: 0DH63UZ Insertion of Feeding Device into Stomach, Percutaneous Approach (ICD-10-PCS; principal; 2016-12-15 14:00)
DX: R13.10 Dysphagia, unspecified (principal); E43 Unspecified severe protein-calorie malnutrition; R53.2 Functional quadriplegia; Z68.1 Body mass index [BMI] 19.9 or less, adult; I48.0 Paroxysmal atrial fibrillation; E78.5 Hyperlipidemia, unspecified; E87.5 Hyperkalemia; Z87.891 Personal history of nicotine dependence; R62.7 Adult failure to thrive